=== PATIENT | female | born 1975 | race African-American/Black ===

== ENCOUNTER 2021-10-25 06:18 | Emergency (ER) | payer OTHER ==
[~2021-10-25] VITALS: Ht 162.6 cm; Wt 86.2 kg
[2021-10-25 06:18] VITALS: BP_SYST 134
--- NOTE | 2021-10-25 06:18 | NUR ---
Patient to ER bed 6 to gown for evaluation. Side rails up.
--- NOTE | 2021-10-25 06:20 | NUR ---
ER at bedside examining patient.
--- NOTE | 2021-10-25 06:23 | NUR ---
Dr. Ferreira bedside for pt eval
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
--- NOTE | 2021-10-25 07:10 | NUR ---
Assumed care of patient. Report received from Ephraim MONTEMAYOR. Will continue to monitor.
--- NOTE | 2021-10-25 07:20 | NUR ---
XRay to bedside for image Addendum: 10/25/21 at 0745 by [email or web address] Xray to bedside for images of foot and chest
[2021-10-25] MEDS ORDERED: HYDROcodone/ACETAMIN 10-325 MG TAB PO ONE (07:30)
[2021-10-25] MEDS ORDERED: IBUPROFEN 800 MG TABLET PO ONE (07:30)
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
[2021-10-25 08:00] VITALS: BP_SYST 134
--- NOTE | 2021-10-25 08:00 | NUR ---
Patient noted not to be in room. No IV was placed. Patient eloped. Dr Ferreira and studio operations engineer in charge informed.
== END 2021-10-25 08:00 | disposition home or self-care (01) ==
LOC: SED 06:18
DX: S20.212A Contusion of left front wall of thorax, initial encounter (principal); V49.49XA Driver injured in collision with other motor vehicles in traffic accident, initial encounter; Y93.89 Activity, other specified; Y92.89 Other specified places as the place of occurrence of the external cause; Y99.8 Other external cause status
CPT/HCPCS: 71045; 93005; 99284